=== PATIENT | male | born 1995 | race Caucasian/White ===

== ENCOUNTER 2017-10-25 15:36 | Emergency (ER) | payer OTHER ==
[~2017-10-25] VITALS: Ht 182.9 cm; Wt 85.1 kg
[~2017-10-25 15:36] MED LIST: MULT-513 PO; PANT40TA2 PO; SUCR1TAB PO
[2017-10-25 15:40] VITALS: Ht 182.9 cm; Wt 85.1 kg
[2017-10-25] MEDS ORDERED: NURSING VERBAL MED ORDER ONE (15:47)
[2017-10-25] MEDS ORDERED: MoRPHine SULFATE 10 MG/ML CARP/VIAL ONE (15:47)
--- NOTE | 2017-10-25 15:53 | EMERGENCY ROOM VISIT NOTE ---
History Report prepared by Katarinaibterrell: Wendy Smith Under the Supervision of: Dr. Minerva De La Cruz D.O. 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 He reports he was playing football when he got tackled and fell on his left shoulder. He describes his pain as moderate and notes lying down is a relieving factor. He states he has numbness in his left hand. Pt denies headache, change in vision, fevers, chest pain, shortness of breath, nausea, vomiting, diarrhea, pain with urination, and melena. Friends with him state he didn't lose consciousness when he was tackled and didn't hit his head. Pt denied any other injuries. He was able to get up and walk with help and felt steady on his feet. Source of History: patient Onset: 1 hour vessel captain Position: shoulder (left) Symptom Intensity: moderate Quality: other (dislocation) Modifying Factors (Relieving): other (lying down) Associated Symptoms: + numbness (left hand), No fevers, No headache, No chest pain, No SOB, No nausea, No vomiting, No melena, No diarrhea, No urinary symptoms Note: Negative changes in vision. Review of Systems See HPI for pertinent positives & negatives. A total of 10 systems reviewed and were otherwise negative. Family History Patient reports no known family medical history. Social History Smoking Status: Current Some Day Smoker Smokeless Tobacco Use: Unknown Marital Status: single Occupation Status: [employer] student Current/Historical Medications No Active Prescriptions or Reported Meds Allergies Coded Allergies: Amoxicillin (Verified Allergy, Unknown, UNKN, 10/25/17) A BABY Physical Exam Vital Signs Date Time Temp Pulse Resp B/P (MAP) Pulse Ox O2 Delivery O2 Flow Rate FiO2 10/25/17 16:45 36.6 84 22 120/66 99 10/25/17 16:43 84 22 120/66 99 Room Air 10/25/17 15:40 36.6 110 22 132/68 93 Room Air Physical Exam GENERAL: alert, well appearing, well nourished, no distress, non-toxic EYE EXAM: normal conjunctiva, PERRL and EOM's grossly intact OROPHARYNX: no exudate, no erythema, lips, buccal mucosa, and tongue normal and mucous membranes are moist NECK: supple, no nuchal rigidity, no adenopathy, non-tender LUNGS: Clear to auscultation. Normal chest wall mechanics HEART: no murmurs, S1 normal and S2 normal ABDOMEN: abdomen soft, non-tender, normo-active bowel sounds, no masses, no rebound or guarding. BACK: Back is symmetrical on inspection and there is no deformity, no midline tenderness, no CVA tenderness. SKIN: no rashes and no bruising UPPER EXTREMITIES: Deformity of the left shoulder consistent with dislocation. No ecchymosis or edema. LOWER EXTREMITIES: No pitting edema. FROM, no deformity, nml pulses. NEURO EXAM: Normal sensorium, cranial nerves II-XII grossly intact, normal speech, no gross weakness of arms, no gross weakness of legs. Medical Decision & Procedures ER Provider Diagnostic Interpretation: LEFT SHOULDER 2 VIEWS CLINICAL HISTORY: Postreduction examination. FINDINGS: 2 portable views of the left shoulder are obtained. No prior studies are available for comparison at the time of dictation. The skeletal structures are well mineralized. No fracture or dislocation is identified. The glenohumeral and acromioclavicular joints appear maintained. The overlying soft tissues are within normal limits. The imaged left lung parenchyma appears clear. IMPRESSION: There is no radiographic evidence of left shoulder fracture or dislocation. Electronically signed by: Wilber Terrell M.D. 10/25/2017 4:17 PM Dictated Date/Time: 10/25/2017 4:17 PM Medications Administered Medications (Trade) Dose Ordered Sig/Jailyn Route Start Time Stop Time Status Last Admin Dose Admin Morphine Sulfate (MoRPHine SULFATE INJ) 10 mg STK-MED ONCE .ROUTE 10/25/17 15:47 10/25/17 15:48 DC 10/25/17 15:57 10 MG Procedure Anterior Shoulder Dislocation Reduction Indication: dislocation Verbal consent obtained. Risks and benefits were explained with the usual customary discussion. A time out was taken. Neurovascular examination before the procedure was normal. The left shoulder glenohumeral dislocation was reduced by placing the patient prone and applying gentle downward inline traction on the humerus, with the elbow flexed at 90 degrees, while scapula manipulation was applied. This resulted in an easy reduction without complication. Neurovascular examination after the procedure was normal. The patient had significant pain relief and tolerated the procedure well. Post procedure xray ordered and pt placed in a sling. ED Course 1544: The patient was evaluated in room C9. A complete history and physical exam was performed. 1547: Morphine Sulfate 10 mg IM, shoulder reduced with assistance of tech with pt in prone position. 1625: I checked on the patient at this time. He is feeling much better. Upon reevaluation, the patient is feeling better. I discussed the findings and the treatment plan with the patient. He verbalizes agreement and understanding. He was discharged home. Medical Decision Differential diagnosis: Etiologies such as fracture, dislocation, intra-abdominal, pneumothorax, intrathoracic , intracranial, neurologic, as well as other traumatic pathologies were entertained. I have a low suspicion for any occult traumatic injury or occult fracture of the shoulder or glenohumeral joint. Pt well appearing at discharge, verbalized understanding of precautions, use of sling, f/u with ortho, sx to watch/return for. All questions answered at bedside. Friend driving him home. Medication Reconcilliation Current Medication List: was personally reviewed by me Blood Pressure Screening Patient's blood pressure: Normal blood pressure Blood pressure disposition: Did not require urgent referral Impression Primary Impression: Shoulder dislocation Scribe Attestation The scribe's documentation has been prepared under my direction and personally reviewed by me in its entirety. I confirm that the note above accurately reflects all work, treatment, procedures, and medical decision making performed by me. Departure Information Dispostion Home / Self-Care Prescriptions No Active Prescriptions or Reported Meds Referrals No Doctor, Assigned (PCP) Forms HOME CARE DOCUMENTATION FORM, IMPORTANT VISIT INFORMATION, WORK / SCHOOL INSTRUCTIONS Patient Instructions My [facility] Additional Instructions Please call and follow-up with orthopedic surgery as a precaution. Please wear the sling until you are otherwise advised by orthopedics. You may use Tylenol and Advil as needed for pain. Please drink plenty of water. Do not take Advil/ Motrin/ibuprofen on an empty stomach. If you have any increasing or worsening pain, increased numbness or tingling, discoloration of the hand or fingers, develop other new or concerning pains or other symptoms, please return the emergency room. Problem Qualifiers Primary Impression: Shoulder dislocation Encounter type: initial encounter Laterality: left Qualified Codes: S43.005A - Unspecified dislocation of left shoulder joint, initial encounter
--- NOTE | 2017-10-25 16:19 | DIAGNOSTIC IMAGING REPORT ---
LEFT SHOULDER 2 VIEWS CLINICAL HISTORY: Postreduction examination. FINDINGS: 2 portable views of the left shoulder are obtained. No prior studies are available for comparison at the time of dictation. The skeletal structures are well mineralized. No fracture or dislocation is identified. The glenohumeral and acromioclavicular joints appear maintained. The overlying soft tissues are within normal limits. The imaged left lung parenchyma appears clear. IMPRESSION: There is no radiographic evidence of left shoulder fracture or dislocation. Electronically signed by: Wilber Terrell M.D. 10/25/2017 4:17 PM Dictated Date/Time: 10/25/2017 4:17 PM
[2017-10-25 16:45] VITALS: BP 120/66; PULSE 84; TEMP 36.6; O2SAT 99
== END 2017-10-25 16:46 | disposition home or self-care (01) ==
LOC: C.EDB 15:37 → C.EDC 16:46
DX: S43.005A Unspecified dislocation of left shoulder joint, initial encounter (principal); W03.XXXA Other fall on same level due to collision with another person, initial encounter; Y93.61 Activity, american tackle football; Y99.8 Other external cause status; F17.200 Nicotine dependence, unspecified, uncomplicated; Z88.0 Allergy status to penicillin